=== PATIENT | male | born 1960 | race Two or more races ===

== ENCOUNTER 2025-03-26 14:57 | Inpatient (IN) | payer OTHER ==
[~2025-03-26] VITALS: Ht 165.1 cm; Wt 72.4 kg
--- NOTE | 2025-03-26 15:12 | ED.PDOC ---
History of Present Illness HPI Comments 64 year old male MIRIAM presents to the ED with chief complaint of generalized weakness. EMS reports that the patient was recently seen in [place] a week ago with chest pain and anemia, having a follow up today with his doctor. EMS relays that the patient's Hgb is now 10.2, not requiring transfusion, however, PCP had called 911 due to patient's increased generalized weakness, dizziness, and systolic blood pressure in the 80s. EMS states that the patient was given NS IV on route and after 300mL were given, patient stated he had improvement in his symptoms and feels much better. Patient now denies any generalized weakness, dizziness, chest pain, SOB, N/V/D, or abdominal pain. Time Seen by MD: 15:08 Reviewed Notes: Nurses Notes, Bull Gang Supervisor Notes, Medications, Allergies Information Source: Patient, Relative, Emergency Med Personnel Mode of Arrival: EMS Severity: Moderate Timing: Hours Duration: Since onset Prehospital treatment: None Past Medical History PAST MEDICAL HISTORY: DM, HTN Surgical History: Denies all surgeries Family History Family History: Reviewed,noncontributory to illness Social History Smoker: Non-Smoker Alcohol: Denies ETOH Use Drugs: Denies Drug Use Lives In: Home Constitutional: reports: weakness; denies: chills, diaphoresis, fatigue, fever, malaise, sweats, others EENTM: denies: blurred vision, double vision, ear bleeding, ear discharge, ear drainage, ear pain, ear ringing, eye pain, eye redness, hearing loss, mouth pain, mouth swelling, nasal discharge, nose bleeding, nose congestion, nose pain, photophobia, tearing, throat pain, throat swelling, voice changes, others Respiratory: denies: cough, hemoptysis, orthopnea, SOB at rest, shortness of breath, SOB with excertion, stridor, wheezing, others Cardiovascular: denies: chest pain, dizzy spells, diaphoresis, Dyspnea on exertion, edema, irregular heart beat, left arm pain, lightheadedness, palpitations, PND, syncope, others Gastrointestinal: denies: abdomen distended, abdominal pain, blood streaked bowels, constipated, diarrhea, dysphagia, difficulty swallowing, hematemesis, melena, nausea, poor appetite, poor fluid intake, rectal bleeding, rectal pain, vomiting, others Genitourinary: denies: burning, dysuria, flank pain, frequency, hematuria, incontinence, penile discharge, penile sore, pain, testicle pain, testicle swelling, urgency, others Neurological: denies: dizziness, fainting, headache, left sided numbness, left sided weakness, numbness, paresthesia, pre-existing deficit, right sided numbness, right sided weakness, seizure, speech problems, tingling, tremors, wea kness, others Musculoskeletal: denies: back pain, gout, joint pain, joint swelling, muscle pain, muscle stiffness, neck pain, others Integumetry: denies: bruises, change in color, change in hair/nails, dryness, l aceration, lesions, lumps, rash, wounds, others Allergic/Immunocompromised: denies: Difficulty Healing, Frequent Infections, Hives, Itching, others Hematologic/Lymphatic: denies: anemia, blood clots, easy bleeding, easy bruising, swollen glands, others Endocrine: denies: excessive hunger, excessive sweating, excessive thirst, excessive urination, flushing, intolerance to cold, intolerance to heat, unexplained weight gain, unexplained weight loss, others Psychiatric: denies: anxiety, bipolar disorder, depression, hopeless, panic disorder, schizophrenia, sleepless, suicidal, others All Other Systems: Reviewed and Negative Physical Exam General Appearance: Moderate Distress, Normal HEENT: Normal ENT Inspection, Pharynx Normal, TMs Normal Neck: Full Range of Motion, Non-Tender, Normal, Normal Inspection Respiratory: Chest Non-Tender, Lungs Clear, No Accessory Muscle Use, No Respiratory Distress, Normal Breath Sounds Cardiovascular: No Edema, No JVD, No Murmur, No Gallop, Normal Peripheral Pulses, Regular Rate/Rhythm Breast Exam: Deferred Gastrointestinal: No Organomegaly, Non Tender, No Pulsatile Mass, Normal Bowel Sounds, Soft Genitalia: Deferred Pelvic: Deferred Rectal: Deferred Extremities: No calf tenderness, Normal capillary refill, Normal inspection, Normal range of motion, Non-tender, No pedal edema Musculoskeletal : Apperance: Normal Neurologic: Alert, central office operator supervisor II-XII nml as Tested, No Motor Deficits, Normal Affect, Normal Mood, No Sensory Deficits Cerebellar Function: Normal Reflexes: Normal Skin: Dry, Normal Color, Warm Peripheral Pulses: 3+ Radial (R), 3+ Radial (L) Lymphatic: No Adenopathy Was a procedure done? Was a procedure done?: No Differential Dx Considerations may include: Anemia Electrolyte imbalance X-Ray, Labs, Meds, VS Lab Test 03/26/25 15:42 Range/Units White Blood Count 5.3 4.4-10.8 10^3/uL Red Blood Count 3.23 L 4.5-5.90 10^6/uL Hemoglobin 10.6 L 13.5-17.5 g/dL Hematocrit 31.6 L 41.0-53.0 % Mean Corpuscular Volume 97.9 80.0-100.0 fL Mean Corpuscular Hemoglobin 32.7 H 28.0-32.0 pg Mean Corpuscular Hemoglobin Concent 33.4 32.0-36.0 g/dL Red Cell Distribution Width 14.4 H 11.8-14.3 % Platelet Count 321 140-450 10^3/uL Mean Platelet Volume 7.0 6.9-10.8 fL Neutrophils (%) (Auto) 56.4 37.0-80.0 % Lymphocytes (%) (Auto) 31.6 10.0-50.0 % Monocytes (%) (Auto) 8.7 0.0-12.0 % Eosinophils (%) (Auto) 1.6 0.0-7.0 % Basophils (%) (Auto) 1.7 0.0-2.0 % Neutrophils # (Auto) 3.0 1.6-8.6 10 ^3/uL Lymphocytes # (Auto) 1.7 0.4-5.4 10 ^3/uL Monocytes # (Auto) 0.5 0-1.3 10 ^3/uL Eosinophils # (Auto) 0.1 0-0.8 10 ^3/uL Basophils # (Auto) 0.1 0-0.2 10 ^3/uL Nucleated Red Blood Cells 0.1 % Sodium Level 137 136-145 mmol/L Potassium Level 4.9 3.5-5.1 mmol/L Chloride Level 108 H 98-107 mmol/L Carbon Dioxide Level 20 20-31 mmol/L Anion Gap 9 5-15 Blood Urea Nitrogen 40 H 9-23 mg/dL Creatinine 2.00 H 0.700-1.30 mg/dL Glomerular Filtration Rate Calc 36 >90 mL/min BUN/Creatinine Ratio 20.0 10.0-20.0 Serum Glucose 269 H 74-106 mg/dL Calcium Level 9.5 8.7-10.4 mg/dL Troponin I High Sensitivity 7 </=54 ng/L Patient alert. Vitals stable. Given fluids prior to coming to the ER. Answering questions. Blood sugar elevated. Kidney function elevated. Possible ATN. WBC within normal limits pain Establish intravenous access. Was given fluids pain Cardiac marker within normal limits. Explained to the patient that he will be admitted for further workup. Continue monitoring. EKG reviewed does not show any acute changes. Time of 1ST Reevaluation: 16:08 Reevaluation 1ST: Improved Time of 2ND Reevaluation: 16:52 Reevaluation 2ND: Improved Patient Education/Counseling: Diagnosis, Treatment Family Education/Counseling: Diagnosis, Treatment Additional Information The following tests were ordered, and results were reviewed by me: Additional Information was gathered from interviewing the following independent historians: EMS I reviewed and agreed with the following test results read by other providers: I discussed treatment and results with medical personnel and: patient and family Comprehensive systems review obtained and negative except for what is stated in the HPI. Departure 1 Departure Time of Disposition: 16:54 Impression: Primary Impression: Uncontrolled diabetes mellitus Qualified Codes: E13.65 - Other specified diabetes mellitus with hyperglycemia Additional Impressions: Dehydration Acute tubular necrosis Near syncope Disposition: 09 ADMITTED INPATIENT Admit to: Med Surg Condition: Guarded Comments Spoke to and examined patient at 1508, discussing treatment plan at this time. Critical Care Note Critical Care Time?: No Stability Stability form required: No Heart Score Heart Score: Heart Score Response (Comments) Value History Slightly Suspicious 0 EKG Normal 0 Age >65 2 Risk Factors >3 or Hx ASHD 2 Troponin Normal limit 0 Total 4 I personally scribed for BHAVIN NOWAK MD ([email or web address]) on 03/26/25 at 15:12. Electronically submitted by Giacomo Lawrence ([email or web address]). BHAVIN NOWAK MD March 26, 2025 15:12
[2025-03-26 15:56] LABS: Basophils # (auto) 0.1 10 ^3/uL (0-0.2); Basophils % (auto) 1.7 % (0.0-2.0); Eosinophils # (auto) 0.1 10 ^3/uL (0-0.8); Eosinophils % (auto) 1.6 % (0.0-7.0); Hematocrit 31.6 % (41.0-53.0); Hemoglobin 10.6 g/dL (13.5-17.5); Lymphocytes # (auto) 1.7 10 ^3/uL (0.4-5.4); Lymphocytes % (auto) 31.6 % (10.0-50.0); Mean Corpuscular Hemoglobin 32.7 pg (28.0-32.0); Mean Corpuscular Hgb Conc. 33.4 g/dL (32.0-36.0); Mean Corpuscular Volume 97.9 fL (80.0-100.0); Monocytes # (auto) 0.5 10 ^3/uL (0-1.3); Monocytes % (auto) 8.7 % (0.0-12.0); Neutrophils % (auto) 56.4 % (37.0-80.0); Nucleated Red Blood Cells % 0.1 %; Platelet Count (auto) 321 10^3/uL (140-450); Red Blood Cells 3.23 10^6/uL (4.5-5.90); Red Cell Distribution Width 14.4 % (11.8-14.3); White Blood Cell 5.3 10^3/uL (4.4-10.8)
[2025-03-26 16:03] LABS: Potassium 4.9 mmol/L (3.5-5.1); Sodium 137 mmol/L (136-145)
[2025-03-26 16:04] LABS: Anion Gap 9 (5-15); Calcium 9.5 mg/dL (8.7-10.4)
[2025-03-26 16:06] LABS: Carbon Dioxide 20 mmol/L (20-31); Chloride 108 mmol/L (98-107)
[2025-03-26 16:35] LABS: Blood Urea Nitrogen 40 mg/dL (9-23); Glucose 269 mg/dL (74-106)
--- NOTE | 2025-03-26 17:44 | DVH ---
EXAM: CT HEAD WITHOUT CONTRAST INDICATION: syncope TECHNIQUE: CT of the head without intravenous contrast. Radiation Dose Information: CT Dose: CTDI volume is 58.53 mGy. Dose-length product is 1153.44 mGy*cm The dose indicators for CT are the volume Computed Tomography (CT) Dose Index (CTDIvol) and the Dose Length Product (DLP), and are measured in units of mGy and mGy-cm, respectively. These indicators are not patient dose, but values generated from the CT scanner acquisition factors. The report includes radiation exposure data for exposures received during this examination. COMPARISON: None FINDINGS: There is no evidence of acute intracranial hemorrhage, extra-axial collection, mass effect, midline s hift, herniation or hydrocephalus. Decreased area attenuation right frontal lobe suggesting old infar ct The ventricles, sulci and cisterns are age appropriate. The dominguez-white differentiation is intact. Patchy periventricular and subcortical white matter hypoattenuation is nonspecific but may be related to small vessel ischemic disease. Bilateral focal areas of decreased attenuation in the basal ganglion consistent with lacunar infarcts . There are no prior studies for comparison. Opacified left maxillary sinus sinuses and mastoid air cells are clear. The surrounding soft tissues and osseous structures are unremarkable. IMPRESSION: 1. Decreased area of the attenuation right frontal lobe most likely old infarct. 2. Bilateral focal areas of decreased attenuation of the basal ganglia bilaterally consistent with ol d lacunar infarcts. 3. No acute intracranial hemorrhage
[2025-03-26] MEDS: SODIUM CHLORIDE 0.9% 1,000 ML IV ONE ×3 (19:28→19:33)
[2025-03-26] MEDS ORDERED: ACETAMINOPHEN 650 mg PER 20.3 mL UD PO ONE (19:30)
[2025-03-26] MEDS: ACETAMINOPHEN 325 MG TAB PO ONE (19:32)
[2025-03-26 20:05] VITALS: PULSE 73; RESP 16; O2SAT 99
[2025-03-26] MEDS ORDERED: DEXTROSE (50%) 50ML SYRG IV PRN ×2 (22:30→23:00)
--- NOTE | 2025-03-26 22:59 | DVHHP2 ---
History of Present Illness History of Present Illness Patient is 64 years old male with past medical history of CAD, PTCA x3, 3 years before, hypertension, diabetes mellitus, CVA with left-sided residual weakness, stroke in October 2024, was post stent in right internal carotid artery at [facility] in [place] came with the complaint of dizziness and tiredness. Per patient he has been feeling tired and weak for 1 week and feeling dizzy when he tries to walk around with a walker which is chronic after he had stroke in October 2024. Today he went to see his primary care physician where he was weak, dizzy and his blood pressure was low around 80s. PCP office called 911 and patient was sent to the ER. EN route patient had 300 mL of normal saline and was feeling better. Patient reported 1 week before he went to [facility] with chest pain and anemia. Patient had left heart catheterization, he was cleared for any acute blockage, patient was treated with nitroglycerin patch. Today patient denied any chest pain, shortness of breath, acute abdominal pain or dysuria change in vision or joint swelling. She lab workup revealed hemoglobin 10.6, serum creatinine 2.0, GFR 36, blood sugar 269. Negative for troponin I. CT head -right frontal lobe old infarct. Bilateral focal areas of decreased attenuation of the basal ganglia bilaterally consistent with old lacunar infarcts. Carotid Doppler revealed-Right internal carotid artery stent noted. Atherosclerotic plaquing in the bilateral carotid arteries with less than 50% stenosis based on velocity criteria. Antegrade flow in the vertebral arteries. EKG with a sinus rhythm, no acute ST or T-wave changes. PCP Dr. Marguerite Hu Cardiology-Dr. Anton Walls Past Medical History CAD, PTCA x3, 3 years before, hypertension, diabetes mellitus, CVA with left- sided residual weakness, stroke in October 2024 Past Surgical History Appendectomy, PTCA x3 3 years before Family History Both mom and dad had diabetes mellitus Past Social History Lives with , denies smoking/alcoholism/drug abuse Home meds-insulin Lantus, clopidogrel, atorvastatin-patient could not give the details of the of the medication dose or name of the other medication Review of Systems Review of Systems Allergy- NKDA Patient was seen today at the bedside. Cardiovascular- deny acute chest pain or shortness of breath or cough or palpitation Respiratory denies cough or short of breath or wheezing Gastrointestinal- denies any rectal bleeding, nausea or vomiting Musculoskeletal-denies acute joint swelling or tenderness or redness Neurological- denies acute dysarthria, dysphagia, change in vision Psychiatry- denies depression or SI or HI Skin- denies acute rash or purpura Allergies: Coded Allergies: NO KNOWN ALLERGIES (Unverified , 03/26/25) Medications Current Medications Medications Dose Ordered Sig/Trina Route Start Time Stop Time Status Last Admin Dose Admin Diagnostic Test (Pha) 1 strip ACHS 03/27/25 07:00 Insulin Human Regular ACHS SC 03/27/25 07:00 Dextrose 50 ml UD PRN IV 03/26/25 22:30 Pantoprazole Sodium 40 mg DAILY IV 03/27/25 10:00 Enoxaparin Sodium 40 mg Q24H SC 03/27/25 21:00 Sodium Chloride 1,000 ml @ 125 mls/hr Q8H IV 03/26/25 22:30 Diagnostic Test (Pha) 1 strip ACHS 03/27/25 07:00 UNV Insulin Human Regular ACHS SC 03/27/25 07:00 UNV Dextrose 50 ml UD PRN IV 03/26/25 23:00 UNV Exam Vital Signs Vital Signs Date Time Temp Pulse Resp B/P (MAP) Pulse Ox O2 Delivery O2 Flow Rate FiO2 03/26/25 22:37 97.5 74 16 139/59 (85) 100 97.5 03/26/25 20:05 Room Air* 0 21 Exam General examination- awake, alert, conversant HEENT- PEERLA, no acute nasal discharge Cardiovascular- S1-S2 audible, rate and rhythm regular, no murmur Respiratory- CTAB, no wheeze or rhonchi Gastrointestinal-nontender, bowel sound+. Nondistended Musculoskeletal-no acute joint swelling or tenderness or redness Lower extremity- no leg edema Neurological- cranial nerves intact, no acute dysarthria or dysphagia Psychiatry- denies depression or SI or HI Skin- no acute rash or purpura Labs/Xrays Labs Test 03/26/25 15:42 Range/Units White Blood Count 5.3 4.4-10.8 10^3/uL Red Blood Count 3.23 L 4.5-5.90 10^6/uL Hemoglobin 10.6 L 13.5-17.5 g/dL Hematocrit 31.6 L 41.0-53.0 % Mean Corpuscular Volume 97.9 80.0-100.0 fL Mean Corpuscular Hemoglobin 32.7 H 28.0-32.0 pg Mean Corpuscular Hemoglobin Concent 33.4 32.0-36.0 g/dL Red Cell Distribution Width 14.4 H 11.8-14.3 % Platelet Count 321 140-450 10^3/uL Mean Platelet Volume 7.0 6.9-10.8 fL Neutrophils (%) (Auto) 56.4 37.0-80.0 % Lymphocytes (%) (Auto) 31.6 10.0-50.0 % Monocytes (%) (Auto) 8.7 0.0-12.0 % Eosinophils (%) (Auto) 1.6 0.0-7.0 % Basophils (%) (Auto) 1.7 0.0-2.0 % Neutrophils # (Auto) 3.0 1.6-8.6 10 ^3/uL Lymphocytes # (Auto) 1.7 0.4-5.4 10 ^3/uL Monocytes # (Auto) 0.5 0-1.3 10 ^3/uL Eosinophils # (Auto) 0.1 0-0.8 10 ^3/uL Basophils # (Auto) 0.1 0-0.2 10 ^3/uL Nucleated Red Blood Cells 0.1 % Sodium Level 137 136-145 mmol/L Potassium Level 4.9 3.5-5.1 mmol/L Chloride Level 108 H 98-107 mmol/L Carbon Dioxide Level 20 20-31 mmol/L Anion Gap 9 5-15 Blood Urea Nitrogen 40 H 9-23 mg/dL Creatinine 2.00 H 0.700-1.30 mg/dL Glomerular Filtration Rate Calc 36 >90 mL/min BUN/Creatinine Ratio 20.0 10.0-20.0 Serum Glucose 269 H 74-106 mg/dL Calcium Level 9.5 8.7-10.4 mg/dL Troponin I High Sensitivity 7 </=54 ng/L Assessment/Plan Assessment/Plan Assessment and plan Weakness and dizziness-rule out acute stroke Hypotension likely from dehydration or orthostatic hypotension, rule out cardiac arrhythmia-EKG sinus rhythm, no acute arrhythmia noted Dizziness, rule out stroke/orthostatic hypotension/cardiac arrhythmia Anemia likely anemia of chronic disease NELSY on CKD likely due to VMN Uncontrolled diabetes mellitus Hypertension CAD, PTCA x3 CVA with left-sided residual weakness Right internal carotid artery stent-at [facility] in [place] in October 2024 as per patient bilateral carotid arteries with less than 50% stenosis CT head- Decreased area of the attenuation right frontal lobe most likely old infarct. Bilateral focal areas of decreased attenuation of the basal ganglia bilaterally consistent with old lacunar infarcts. Carotid Doppler revealed-Right internal carotid artery stent noted. Atherosclerotic plaquing in the bilateral carotid arteries with less than 50% stenosis based on velocity criteria. Antegrade flow in the vertebral arteries EKG sinus rhythm, no acute arrhythmia noted Plan Aspirin 81 mg p.o. daily atorvastatin Ordered insulin sliding scale Insulin Lantus Ordered IV normal saline No antihypertensive medication was given at this time as patient came with a hypotension Pantoprazole as prescribed Lovenox for DVT prophylaxis Ordered iron panel and ferritin level for further evaluation of anemia Ordered carotid Doppler Ordered echo 2D Ordered EKG Ordered vitamin B12 and folic acid level, HGB A1c, TSH Ordered UA, urinary sodium, urinary creatinine, urine protein creatinine ratio Ordered stool occult blood test PCP Dr. Marguerite Hu Cardiology-Dr. Anton Walls Goals of care, Code status ; discussed with >15 minutes PUD prophylaxis: Pantoprazole DVT prophylaxis: Lovenox Plan discussed with Dr. Flores , nursing staff, Total time spent on patient evaluation, chart review, assessment and plan, dis cussion discussion >35 minutes Plan discussed with: Patient, Spouse, Other (RN) My Orders Orders - VIDA EMANUEL RESIDENT Procedure Category Date Status Time Admit ADMIT 03/26/25 Transmitted 22:16 Stat Ekg For Chest ORION 03/26/25 In Process Pain 22:16 [employer] For ORION 03/26/25 In Process 24 Hours 22:16 Glucose Blood PHA 03/27/25 In Process (Accu-Chek Comfort 07:00 Insulin R (Human) PHA 03/27/25 In Process (Insulin R) 07:00 Dextrose 50% Syringe PHA 03/26/25 In Process 22:30 Pantoprazole PHA 03/27/25 In Process (Protonix) 10:00 Enoxaparin Sodium PHA 03/27/25 In Process (Lovenox) 21:00 Sodium Chloride 0.9% PHA 03/26/25 In Process 22:30 Orthostatic Vital ORDERS 5/14/25 Transmitted Signs 22:26 Echo 2d Mode Cardiac US 03/26/25 Logged DOP 22:44 Electrocardigram EKG 03/26/25 Logged 22:44 Chest Xray 1 View XY 03/26/25 Logged 22:44 Thyroid Stimulating LAB 03/26/25 Logged Hormone 22:44 Vitamin B12 LAB 03/26/25 Logged 22:44 Folate (Folic Acid) LAB 03/26/25 Logged 22:44 Carotid Duplx W Color US 03/26/25 Verified DOP 22:44 Stool Occult Blood LAB 03/26/25 Logged 22:46 Iron Panel LAB 03/26/25 Logged 22:46 Reticulocyte Count LAB 03/26/25 Logged 22:46 Urine Sodium LAB 03/26/25 Logged 22:48 Urine LAB 03/26/25 Logged Protein/Creatinine Urine Creatinine LAB 03/26/25 Logged 22:48 *Dr. Calderón [facility] CONS 03/26/25 Transmitted -[place] 22:48 Phosphorus LAB 03/26/25 Logged 22:48 Parathyroid Hormone LAB 03/26/25 Logged Intact 22:48 Consistent DIET 03/27/25 Transmitted Carb(Ccho)Diabetes Breakfast Urinalysis LAB 03/26/25 Logged 22:48 Glucose Blood PHA 03/27/25 Logged (Accu-Chek Comfort 07:00 Insulin R (Human) PHA 03/27/25 Logged (Insulin R) 07:00 Dextrose 50% Syringe PHA 03/26/25 Logged 23:00 Insulin Lantus PHA 03/26/25 Verified (Glargine) (Lantus) 23:00 Insulin Lantus PHA 03/27/25 Verified (Glargine) (Lantus) 07:00 Aspirin Tablet PHA 03/27/25 Verified 10:00 Aspirin Tablet PHA 03/26/25 Verified 23:00 Atorvastatin (Lipitor) PHA 03/27/25 Verified 22:00 Atorvastatin (Lipitor) PHA 03/26/25 Verified 23:00 Date of Service: March 26, 2025 Billing Provider: KATRINA FLORES MD Common Visit Codes: 92322-[id number] INP/OBS CARE (HIGH) Secondary Visit Codes: 43816-[id number] CARE PLAN 30 MINUTES VIDA EMANUEL RESIDENT March 26, 2025 22:59
[2025-03-26 23:42] LABS: % Iron Saturation 21.9 % (20-55)
[2025-03-26 23:45] LABS: Folate (Folic Acid) 10.89 ng/mL (>5.38)
[2025-03-26] MEDS: PANTOPRAZOLE 40 MG/10 ML VIAL INJ IV ONE (23:51)
[2025-03-26] MEDS: ATORVASTATIN 20 MG TAB PO ONE (23:51)
[2025-03-26] MEDS: ASPirin 81 mg TAB PO ONE (23:52)
[2025-03-26] MEDS: ENOXAPARIN SOD 40 MG/0.4 ML SYRINGE SC ONE (23:52)
[2025-03-26 23:54] VITALS: BP 133/73; PULSE 73; RESP 17; TEMP 98; O2SAT 99
[2025-03-27] VITALS (12 sets, daily range): BP systolic 81–153; BP diastolic 47–73; PULSE 70–87; RESP 11–18; TEMP 97.4–98.6; O2SAT 96–100
[2025-03-27] MEDS: SODIUM CHLORIDE 0.9% 1,000 ML IV SCH (00:02)
[2025-03-27] MEDS: INSULIN LANTUS (GLARGINE) 1 /0.01ml (100units/ml) SC ONE (00:02)
--- NOTE | 2025-03-27 00:06 | DVH ---
CHEST RADIOGRAPH Indication: PNA Technique: Single frontal view of the chest was obtained Comparison: None FINDINGS: Lines and Tubes: None Lungs: Clear Pleura: No effusion. No pneumothorax. Cardiomediastinal contours: Unremarkable Bones: Unremarkable IMPRESSION: Clear lungs.
--- NOTE | 2025-03-27 00:41 | DVH ---
Carotid Doppler Examination CLINICAL HISTORY: dizziness TECHNIQUE: Real-time high resolution grayscale imaging and color Doppler flow imaging with pulsed du plex sonography of the carotid and vertebral arteries is performed. Velocity criteria are extrapolated from angiographic diameter data as defined by the Society of Radio logists in Ultrasound Consensus Conference (Radiology 2003; 229: 340-346). Comparison: None FINDINGS: Bilateral carotid plaquing is noted, most notable in the left bulb. Right internal carotid artery madina nt is noted. Antegrade flow noted in the bilateral vertebral arteries. Peak systolic velocities (cm/sec): Right ICA proximal: 79 Right ICA mid: 96.8 Right ICA distal: 83.8 Right systolic ICA/CCA ratio: 1.3 Left ICA proximal: 71.4 Left ICA mid: 88.7 Left ICA distal: 122.6 Left systolic ICA/CCA ratio: 1.2 IMPRESSION: Right internal carotid artery stent noted. Atherosclerotic plaquing in the bilateral carotid arteries with less than 50% stenosis based on veloc ity criteria. Antegrade flow in the vertebral arteries.
[2025-03-27] MEDS ORDERED: INSLANTI SC (01:00)
[2025-03-27] MEDS ORDERED: ASPI-665 PO (01:04)
[2025-03-27] MEDS ORDERED: CLOP75TA70 PO (01:04)
[2025-03-27 05:50] LABS: Basophils # (auto) 0.1 10 ^3/uL (0-0.2); Basophils % (auto) 1.4 % (0.0-2.0); Eosinophils # (auto) 0.2 10 ^3/uL (0-0.8); Eosinophils % (auto) 3.7 % (0.0-7.0); Hematocrit 29.7 % (41.0-53.0); Hemoglobin 9.8 g/dL (13.5-17.5); Lymphocytes # (auto) 1.9 10 ^3/uL (0.4-5.4); Mean Corpuscular Hemoglobin 32.3 pg (28.0-32.0); Mean Corpuscular Volume 98.1 fL (80.0-100.0); Monocytes # (auto) 0.5 10 ^3/uL (0-1.3); Monocytes % (auto) 10.9 % (0.0-12.0); Neutrophils # (auto) 2.2 10 ^3/uL (1.6-8.6); Platelet Count (auto) 268 10^3/uL (140-450); Red Blood Cells 3.03 10^6/uL (4.5-5.90); Red Cell Distribution Width 14.1 % (11.8-14.3)
[2025-03-27] MEDS: InsuLIN REG 1unit/0.01ml Soln (100units/ml) SC SCH (06:00)
[2025-03-27] MEDS: ACCU-CHEK COMFORT CURVE STRIP VI SCH ×2 (06:05)
[2025-03-27] MEDS: INSULIN LANTUS (GLARGINE) 1 /0.01ml (100units/ml) SC SCH (06:16)
[2025-03-27] MEDS ORDERED: InsuLIN REG 1unit/0.01ml Soln (100units/ml) SC SCH (07:00)
[2025-03-27 09:02] LABS: Urine Bacteria None Seen /hpf (None Seen)
[2025-03-27 09:12] LABS: Urine Blood Negative /uL (Negative); Urine Clarity Clear (Clear); Urine Color Light-Yellow (Yellow); Urine Protein, UAD Negative (Negative); Urine Specific Gravity 1.014 (1.001-1.035); Urine Squamous Epithelial Cell FEW /hpf (<5); Urine Urobilinogen Normal (Negative); Urine WBC < 1 /HPF (0-3); Urine pH 5.5 (5.0-9.0)
[2025-03-27] MEDS: ASPirin 81 mg TAB PO SCH (09:17)
[2025-03-27] MEDS: PANTOPRAZOLE 40 MG/10 ML VIAL INJ IV SCH (09:17)
[2025-03-27 09:20] LABS: Protein, Urine 12.8 mg/dL (1-14)
[2025-03-27 09:23] LABS: Creatinine, Urine 43.19 mg/dL (30.0-125.0); Urine Protein/Creatinine Ratio 0.3
--- NOTE | 2025-03-27 10:04 | DVH ---
US KIDNEY HISTORY: mckenzie vs ckd COMPARISON: None TECHNIQUE: Transverse and longitudinal grayscale and color doppler images were obtained of the kidney s and bladder. FINDINGS: Right kidney: Size: 10.0 cm Cortical thickness: Normal Echogenicity: Normal Stones: 0.5 cm non obstructive kidney stone. Masses: None Hydronephrosis: None Ureters: Not well visualized. Other: None Left kidney: Size: 10.3 cm Cortical thickness: Normal Echogenicity: Normal Stones: 0.4cm left kidney stone. Masses: None Hydronephrosis: Yes Ureters: Not well visualized. Other: None Bladder: 0.6 cm nodule along the bladder wall. Other: None. IMPRESSION: Mild left hydronephrosis. Small bilateral kidney stones seen. 0.6 cm nodule along the bladder wall.
[2025-03-27 10:22] LABS: Alanine Aminotransferase 54 U/L (7-40); Alkaline Phosphatase 135 U/L (46-116); Anion Gap 9 (5-15); Aspartate Aminotransferase 33 U/L (13-40); BUN/Creatinine Ratio 22.1 (10.0-20.0); Bilirubin, Total 0.7 mg/dL (0.2-1.0); Blood Urea Nitrogen 38 mg/dL (9-23); Calcium 9.2 mg/dL (8.7-10.4); Carbon Dioxide 20 mmol/L (20-31); Chloride 114 mmol/L (98-107); Cholesterol 102 mg/dL (< 200); Glucose 178 mg/dL (74-106); HDL Cholesterol 34 mg/dL (40-59); LDL Cholesterol 50 mg/dL (< 100); Potassium 4.3 mmol/L (3.5-5.1); Sodium 143 mmol/L (136-145); Total Protein 6.7 g/dL (5.7-8.2); Triglycerides 84 mg/dL (< 150)
[2025-03-27 10:30] LABS: Magnesium 2.3 mg/dL (1.6-2.6)
[2025-03-27 10:32] LABS: Phosphorus 4.1 mg/dL (2.4-5.1)
[2025-03-27] MEDS ORDERED: SODIUM CHLORIDE 0.9% 1,000 ML IV SCH (12:00)
[2025-03-27] MEDS: amLODIPine BESYLATE 5 MG TAB PO ONE (13:46)
--- NOTE | 2025-03-27 16:15 | DVHPN2 ---
Subjective 64-year-old male with a history of type 2 diabetes insulin-dependent, coronary artery disease status post stents 2-1/2 years ago, hypertension, CVA with left hemiparesis 6 months ago, carotid stenosis with right carotid stent done also 6 months ago came with a chief complaint of low blood pressure and weakness apparently he was at his primary care doctor's office yesterday and his blood pressure was low and he felt weak and therefore he was sent here Admission here his blood pressure was running at about 120/66, he was found to have elevated creatinine at 2.0, he was given IV fluids overnight creatinine is down to 1.7 is blood pressure is better and he is feeling better Changes from previous H/P or p: Changes Objective Vitals Vital Signs Date Time Temp Pulse Resp B/P (MAP) Pulse Ox O2 Delivery O2 Flow Rate FiO2 03/27/25 15:27 97.5 78 11 153/64 (93) 98 97.5 03/27/25 07:00 Room Air* 0 21 Intake/Output Intake and Output 03/27/25 07:00 Intake Total 2000 ml Balance 2000 ml Intake IV Total 2000 ml General Appearance: Alert, Oriented X3, Cooperative, No acute distress Lungs: Clear to auscultation, Normal air movement Cardiovascular: Regular rate, Normal S1, Normal S2 Abdomen: Normal bowel sounds, Soft, No tenderness Extremities: No edema Medications Current Medications Medications Dose Ordered Sig/Trina Route Start Time Stop Time Status Last Admin Dose Admin Diagnostic Test (Pha) 1 strip ACHS 03/27/25 07:00 03/27/25 11:35 1 STRIP Insulin Human Regular ACHS SC 03/27/25 07:00 03/27/25 06:00 2 UNITS Dextrose 50 ml UD PRN IV 03/26/25 22:30 Pantoprazole Sodium 40 mg DAILY IV 03/27/25 10:00 03/27/25 09:17 40 MG Enoxaparin Sodium 40 mg Q24H SC 03/27/25 21:00 Diagnostic Test (Pha) 1 strip ACHS 03/27/25 07:00 03/27/25 11:35 1 STRIP Insulin Human Regular ACHS SC 03/27/25 07:00 UNV Dextrose 50 ml UD PRN IV 03/26/25 23:00 Insulin Glargine 15 units QAM SC 03/27/25 07:00 Aspirin 81 mg DAILY PO 03/27/25 10:00 03/27/25 09:17 81 MG Atorvastatin Calcium 80 mg HS PO 03/27/25 22:00 Amlodipine Besylate 10 mg DAILY PO 03/28/25 10:00 Laboratory Results Laboratory Tests 03/27/25 05:05 Chemistry Test 03/26/25 23:08 03/27/25 05:05 Phosphorus Level 3.8 mg/dL (2.4-5.1) 4.1 mg/dL (2.4-5.1) Albumin 4.0 g/dL (3.2-4.8) Calcium Level 9.2 mg/dL (8.7-10.4) Magnesium Level 2.3 mg/dL (1.6-2.6) Total Protein 6.7 g/dL (5.7-8.2) Lipid panel Test 03/27/25 05:05 Cholesterol Level 102 mg/dL (< 200) HDL Cholesterol 34 mg/dL (40-59) L Triglycerides Level 84 mg/dL (< 150) LFT Test 03/27/25 05:05 Alanine Aminotransferase (ALT) 54 U/L (7-40) H Alkaline Phosphatase 135 U/L (46-116) H Aspartate Amino Transferase (AST) 33 U/L (13-40) Total Bilirubin 0.7 mg/dL (0.2-1.0) HgA1c, TSH Test 03/26/25 23:08 Thyroid Stimulating Hormone (TSH) 2.96 uIU/mL (0.55-4.78) Urinalysis Test 03/27/25 09:00 Urine Color Light-yellow (Yellow) Urine Clarity Clear (Clear) Urine pH 5.5 (5.0-9.0) Urine Specific [place] 1.014 (1.001-1.035) Urine Protein Negative (Negative) Urine Ketones Negative (Negative) Urine Blood Negative /uL (Negative) Urine Nitrite Negative (Negative) Urine Bilirubin Negative (Negative) Urine Urobilinogen Normal mg/dL (Negative) Urine Leukocyte Esterase Negative /uL (Negative) Urine RBC None seen /hpf (0 - 3) Urine Microscopic WBC < 1 /HPF (0-3) Urine Squamous Epithelial Cells Few /hpf (<5) Urine Bacteria None seen /hpf (None Seen) Urine Creatinine 43.19 mg/dL (30.0-125.0) Urine Protein/Creatinine Ratio 0.30 Urine Sodium 149 mmol/L (40-220) Urine Glucose 4+ mg/dL (Normal) H Urine Total Protein 12.8 mg/dL (1-14) Assessment/Plan Assessment/Plan Hypotension due to dehydration and acute kidney injury due to vasomotor nephropathy Acute kidney injury due to vasomotor nephropathy Possible underlying CKD Uncontrolled type 2 diabetes History of hypertension History of CAD with PTCA x3 2-1/2 years ago taking aspirin and Plavix History of CVA with left-sided residual weakness 6 months ago Carotid stenosis with right carotid stent done also 6 months ago Anemia most likely of chronic disease Generalized weakness Plan Hypertension: Amlodipine was started Continue aspirin and Plavix Lipitor Lantus 20 units daily Nephrology consult Monitor the kidney function Echocardiogram pending Full code Physical therapy evaluation Advance directives discussed for 20 minute Plan discussed with: Patient Date of Service: March 27, 2025 Billing Provider: CIARRA FRAGOSO MD Common Visit Codes: [id number] INP/OBS CARE(HIGH) Secondary Visit Codes: [id number] CARE PLAN 30 MINUTES CIARRA FRAGOSO MD March 27, 2025 16:15
[2025-03-27] MEDS: CLOPIDOGREL BISULFATE 75 MG TAB PO ONE (17:51)
--- NOTE | 2025-03-27 18:10 | DVHCONRES ---
Date Seen: March 27, 2025 Resident Creating Document: MADALYN GONSALES RESIDENT History of Present Illness This is a 64-year-old male with PMH diabetes mellitus type 2 for the past 20 years, hypotension, CAD with 3 JESSE 3 years back, history of CVA with residual left-sided weakness 10/2024 status post right ICA stent placement at [place] who was sent to the ER by his PCP as the patient had low blood pressure. Patient went for a routine follow up visit to the PCP where his blood pressure was running low, systolic in 80 mmHg, therefore he was sent to the ER. Patient reports dizziness and fatigue but says that days symptoms have been chronic for the past 5 months when he had a stroke. Patient follows with physical therapist. Patient reports a rash which initially started on bilateral ankles, is itchy, erythematous, papular. Patient was recently admitted in [place] for chest pain 1 week back and he has a left heart catheterization which was unremarkable. Otherwise patient denies fevers/chills/nausea/vomiting/diarrhea/urinary urgency/frequency or any other symptoms Home medications: Clopidogrel, atorvastatin, Lantus Social history: Lives with : Denies smoking/drinking/drug use Patient seen and examined in the ER holding. Vitally stable, CBC remarkable for normocytic anemia. BUN/creatinine 40/2, baseline creatinine 1.1, GFR 68 Family History: Diabetes mellitus G8 MOTHER G8 FATHER Hypercholesterolemia G8 MOTHER Allergies: Coded Allergies: NO KNOWN ALLERGIES (Unverified , 03/26/25) Home Meds Reported Medications Aspirin (Aspirin Regular Strength) 325 Mg Tab, 1 TAB PO DAILY 03/27/25 Clopidogrel Bisulfate (CLOPIDOGREL) 75 Mg Tab, 1 TAB PO DAILY 03/27/25 Insulin Glargine (Lantus) 100 Unit/Ml Inj, 20 UNIT SC DAILY, INJ 03/27/25 Current Medications Current Medications Medications (Trade) Dose Ordered Sig/Trina Route PRN Reason Start Time Stop Time Status Last Admin Diagnostic Test (Pha) (Accu-Chek Comfort Curve T) 1 strip ACHS 03/27/25 07:00 03/27/25 11:35 Insulin Human Regular (InsuLIN R) ACHS SC 03/27/25 07:00 03/27/25 06:00 Dextrose 50 ml UD PRN IV Blood Sugar LESS THAN 60 03/26/25 22:30 Pantoprazole Sodium (Protonix) 40 mg DAILY IV 5/15/25 10:00 03/27/25 09:17 Enoxaparin Sodium (Lovenox) 40 mg Q24H SC 03/27/25 21:00 03/27/25 16:13 DC Sodium Chloride 1,000 ml @ 125 mls/hr Q8H IV 03/26/25 22:30 03/27/25 11:54 DC 03/27/25 00:02 Diagnostic Test (Pha) (Accu-Chek Comfort Curve T) 1 strip ACHS 03/27/25 07:00 03/27/25 11:35 Insulin Human Regular (InsuLIN R) ACHS SC 03/27/25 07:00 UNV Dextrose 50 ml UD PRN IV Blood Sugar LESS THAN 60 03/26/25 23:00 Insulin Glargine (Lantus) 15 units QAM SC 03/27/25 07:00 Aspirin 81 mg DAILY PO 03/27/25 10:00 03/27/25 09:17 Atorvastatin Calcium (Lipitor) 80 mg HS PO 03/27/25 22:00 Sodium Chloride 1,000 ml @ 100 mls/hr Q10H IV 03/27/25 12:00 03/27/25 13:20 DC Amlodipine Besylate (Norvasc Tablet) 10 mg DAILY PO 03/28/25 10:00 Clopidogrel Bisulfate (Plavix) 75 mg DAILY PO 03/28/25 10:00 Vital Signs Vital Signs Date Time Temp Pulse Resp B/P (MAP) Pulse Ox O2 Delivery O2 Flow Rate FiO2 03/27/25 16:15 97.4 76 18 146/72 (96) 100 97.4 03/27/25 07:00 Room Air* 0 21 Physical Exam Patient sitting comfortably in a recliner, no acute distress General: Well-built, afebrile, palor, mucosae are moist Cardiovascular: Regular S1 and S2. No murmurs, gallops or rubs. No JVD elevation. 1+ pitting pedal edema bilaterally Respiratory: Normal B/L air entry on room air. Clear lung sounds on auscultation Abdomen: Soft, nontender, nondistended, normoactive bowel sounds, no rebound tenderness, no organomegaly, no masses Genitourinary: Deferred MSK/skin: Mobilizes 4 limbs. Skin is dry and warm. Bilateral ankle has annular, erythematous, pruritic, circular, rash for the past 1 month Neurological: No motor, no sensitive deficits, normal speech. Pupils are isocor ic and reactive. Psych/Mental Status: A/Ox3 Labs/Diagnostic Data Labs Test 03/27/25 16:22 03/27/25 09:00 03/27/25 05:05 03/26/25 23:08 Range/Units POC Glucose 110 H 70-106 mg/dl Urine Color Light-yellow Yellow Urine Clarity Clear Clear Urine pH 5.5 5.0-9.0 Urine Specific [place] 1.014 1.001-1.035 Urine Protein Negative Negative Urine Ketones Negative Negative Urine Blood Negative Negative /uL Urine Nitrite Negative Negative Urine Bilirubin Negative Negative Urine Urobilinogen Normal Negative mg/dL Urine Leukocyte Esterase Negative Negative /uL Urine RBC None seen 0 - 3 /hpf Urine Microscopic WBC < 1 0-3 /HPF Urine Squamous Epithelial Cells Few <5 /hpf Urine Bacteria None seen None Seen /hpf Urine Creatinine 43.19 30.0-125.0 mg/dL Urine Protein/Creatinine Ratio 0.30 Urine Sodium 149 40-220 mmol/L Urine Glucose 4+ H Normal mg/dL Urine Total Protein 12.8 1-14 mg/dL White Blood Count 5.0 4.4-10.8 10^3/uL Red Blood Count 3.03 L 4.5-5.90 10^6/uL Hemoglobin 9.8 L 13.5-17.5 g/dL Hematocrit 29.7 L 41.0-53.0 % Mean Corpuscular Volume 98.1 80.0-100.0 fL Mean Corpuscular Hemoglobin 32.3 H 28.0-32.0 pg Mean Corpuscular Hemoglobin Concent 33.0 32.0-36.0 g/dL Red Cell Distribution Width 14.1 11.8-14.3 % Platelet Count 268 140-450 10^3/uL Mean Platelet Volume 7.2 6.9-10.8 fL Neutrophils (%) (Auto) 45.0 37.0-80.0 % Lymphocytes (%) (Auto) 39.0 10.0-50.0 % Monocytes (%) (Auto) 10.9 0.0-12.0 % Eosinophils (%) (Auto) 3.7 0.0-7.0 % Basophils (%) (Auto) 1.4 0.0-2.0 % Neutrophils # (Auto) 2.2 1.6-8.6 10 ^3/uL Lymphocytes # (Auto) 1.9 0.4-5.4 10 ^3/uL Monocytes # (Auto) 0.5 0-1.3 10 ^3/uL Eosinophils # (Auto) 0.2 0-0.8 10 ^3/uL Basophils # (Auto) 0.1 0-0.2 10 ^3/uL Nucleated Red Blood Cells 0.0 % Sodium Level 143 # 136-145 mmol/L Potassium Level 4.3 3.5-5.1 mmol/L Chloride Level 114 H 98-107 mmol/L Carbon Dioxide Level 20 20-31 mmol/L Anion Gap 9 5-15 Blood Urea Nitrogen 38 H 9-23 mg/dL Creatinine 1.72 H 0.700-1.30 mg/dL Glomerular Filtration Rate Calc 44 >90 mL/min BUN/Creatinine Ratio 22.1 H 10.0-20.0 Serum Glucose 178 H 74-106 mg/dL Calcium Level 9.2 8.7-10.4 mg/dL Phosphorus Level 4.1 2.4-5.1 mg/dL Magnesium Level 2.3 1.6-2.6 mg/dL Ferritin 243.3 22-322 ng/mL Total Bilirubin 0.7 0.2-1.0 mg/dL Aspartate Amino Transferase (AST) 33 13-40 U/L Alanine Aminotransferase (ALT) 54 H 7-40 U/L Alkaline Phosphatase 135 H 46-116 U/L Total Protein 6.7 5.7-8.2 g/dL Albumin 4.0 3.2-4.8 g/dL Triglycerides Level 84 < 150 mg/dL Cholesterol Level 102 < 200 mg/dL LDL Cholesterol 50 < 100 mg/dL HDL Cholesterol 34 L 40-59 mg/dL Vitamin D 25-Hydroxy 35.1 30.0-100 ng/mL HIV (1&2) Antibody Negative Negative Reticulocyte Count (auto) 1.24 0.5-1.5 % Iron Level 61 L 65-175 ug/dL Total Iron Binding Capacity 279 250-425 ug/dL Percent Iron Saturation 21.9 20-55 % Vitamin B12 Level 1045 H 211-911 pg/mL Folic Acid 10.89 >5.38 ng/mL Thyroid Stimulating Hormone (TSH) 2.96 0.55-4.78 uIU/mL Parathyroid Hormone (Intact) 89.8 H 18.4-80.1 pg/mL Test 03/26/25 15:42 Range/Units Troponin I High Sensitivity 7 </=54 ng/L Assessment Acute kidney injury likely vasomotor mediated rule out ATN and obstruction Hypotension Type 2 diabetes mellitus Anemia likely normocytic Rash, bilateral ankles, pruritic ? Bladder wall nodule History of hypertension History of CAD with 3 JESSE History of CVA 10/2024 with residual left-sided weakness status post right ICA stent placement BUN/creatinine on arrival 40/2 Baseline creatinine 1.1, baseline GFR 68 FENA 4.1% Plan: Patient is improving BUN and creatinine, discontinued IV fluids as BP high Renal ultrasound shows mild left hydronephrosis. Small bilateral kidney stones. 0.6 cm nodule along the bladder wall. Patient has received 3 L IV NS since admission. Continue Strict I&Os Consider outpatient urology evaluation given bladder wall nodule Continue amlodipine 10 mg daily Follow up with HGB A1c levels Follow up with the hepatitis-B/ C and HIV testing Follow up with iron panel and ferritin Plan discussed with patient in which all questions have been answered Case discussed with Dr. hood Addendum Patient seen and examined, plan discussed with resident. Agree with above, we will follow closely Baseline creatinine is 1.1 Status post IV fluids now blood pressure in 180 range stop IV fluids patient denies any dizziness Plan discussed with: Patient MADALYN GONSALES RESIDENT March 27, 2025 18:10 ZUHAIR HOOD MD March 27, 2025 19:45
[2025-03-27] MEDS ORDERED: ENOXAPARIN SOD 40 MG/0.4 ML SYRINGE SC SCH (21:00)
[2025-03-27] MEDS: ATORVASTATIN 20 MG TAB PO SCH (22:13)
[2025-03-28] VITALS (9 sets, daily range): BP systolic 77–130; BP diastolic 45–72; PULSE 73–100; RESP 16–18; TEMP 97.3–98.9; O2SAT 94–99
[2025-03-28 07:38] LABS: Anion Gap 9 (5-15); Carbon Dioxide 22 mmol/L (20-31); Potassium 4.4 mmol/L (3.5-5.1); Sodium 141 mmol/L (136-145)
[2025-03-28 07:39] LABS: Calcium 9.7 mg/dL (8.7-10.4)
[2025-03-28 07:44] LABS: BUN/Creatinine Ratio 17.4 (10.0-20.0)
[2025-03-28 07:45] LABS: % Iron Saturation 21.4 % (20-55)
[2025-03-28 07:51] LABS: Blood Urea Nitrogen 24 mg/dL (9-23); Chloride 110 mmol/L (98-107); Glucose 183 mg/dL (74-106)
[2025-03-28 10:01] LABS: Hepatitis B Surface Antibody Negative (Negative); Hepatitis B Surface Antigen Negative (Negative)
[2025-03-28] MEDS: CLOPIDOGREL BISULFATE 75 MG TAB PO SCH (10:02)
[2025-03-28] MEDS: amLODIPine BESYLATE 5 MG TAB PO SCH (10:02)
[2025-03-28] MEDS: SODIUM CHLORIDE 0.9% 1,000 ML IV ONE (15:09)
--- NOTE | 2025-03-28 15:23 | DVHPN2 ---
Progress Note Date Seen: March 28, 2025 Resident Creating Document: MADALYN GONSALES RESIDENT Medical Necessity Reason Pt with a Central, PICC or Fol: No Subjective Review of Systems This is a 64-year-old male with PMH diabetes mellitus type 2 for the past 20 years, hypotension, CAD with 3 JESSE 3 years back, history of CVA with residual left-sided weakness 10/2024 status post right ICA stent placement at [place] who was sent to the ER by his PCP as the patient had low blood pressure. Patient went for a routine follow up visit to the PCP where his blood pressure was running low, systolic in 80 mmHg, therefore he was sent to the ER. Patient reports dizziness and fatigue but says that days symptoms have been chronic for the past 5 months when he had a stroke. Patient follows with physical therapist. Patient reports a rash which initially started on bilateral ankles, is itchy, erythematous, papular. Patient was recently admitted in [place] for chest pain 1 week back and he has a left heart catheterization which was unremarkable. Otherwise patient denies fevers/chills/nausea/vomiting/diarrhea/urinary urgency/frequency or any other symptoms Home medications: Clopidogrel, atorvastatin, Lantus Social history: Lives with : Denies smoking/drinking/drug use 03/27-Patient seen and examined in the ER holding. Vitally stable, CBC remarkable for normocytic anemia. BUN/creatinine 40/2, baseline creatinine 1.1, GFR 68 03/28-patient seen and examined at the bedside. Blood pressure on the softer side. Urine output 650 cc. Orthostatic vitals are positive, blood pressure dropped from 119/59 till 77/45 on standing. BUN/creatinine trending down. 1 L NS ordered at 75 cc/hour. Objective vital signs Vital Sign Date Time Temp Pulse Resp B/P (MAP) Pulse Ox O2 Delivery O2 Flow Rate FiO2 03/28/25 13:00 97.3 75 16 130/65 (86) 97 97.3 03/28/25 08:00 Room Air* 0 21 Total Intake and Output 03/27/25 03/27/25 03/28/25 15:00 23:00 07:00 Intake Total 230 ml 370 ml Output Total 650 ml Balance 230 ml -280 ml medications Current Medications Medications Dose Ordered Sig/Trina Route Start Time Stop Time Status Last Admin Dose Admin Diagnostic Test (Pha) 1 strip ACHS 03/27/25 07:00 03/28/25 11:30 1 STRIP Insulin Human Regular ACHS SC 03/27/25 07:00 03/28/25 06:49 3 UNITS Dextrose 50 ml UD PRN IV 03/26/25 22:30 Pantoprazole Sodium 40 mg DAILY IV 03/27/25 10:00 03/28/25 10:01 40 MG Diagnostic Test (Pha) 1 strip ACHS 03/27/25 07:00 03/28/25 11:30 1 STRIP Insulin Human Regular ACHS SC 03/27/25 07:00 UNV Dextrose 50 ml UD PRN IV 03/26/25 23:00 Insulin Glargine 15 units QAM SC 03/27/25 07:00 03/28/25 06:50 15 UNITS Aspirin 81 mg DAILY PO 03/27/25 10:00 03/28/25 10:03 81 MG Atorvastatin Calcium 80 mg HS PO 03/27/25 22:00 03/27/25 22:13 80 MG Amlodipine Besylate 10 mg DAILY PO 03/28/25 10:00 03/28/25 10:02 10 MG Clopidogrel Bisulfate 75 mg DAILY PO 03/28/25 10:00 03/28/25 10:02 75 MG Examination Patient comfortably walking with the physical therapist, no acute distress General: Well-built, afebrile, palor, mucosae are moist Cardiovascular: Regular S1 and S2. No murmurs, gallops or rubs. No JVD elevation. 1+ pitting pedal edema bilaterally Respiratory: Normal B/L air entry on room air. Clear lung sounds on auscultation Abdomen: Soft, nontender, nondistended, normoactive bowel sounds, no rebound tenderness, no organomegaly, no masses Genitourinary: Deferred MSK/skin: Mobilizes 4 limbs. Skin is dry and warm. Bilateral ankle has annular, erythematous, pruritic, circular, rash for the past 1 month Neurological: No motor, no sensitive deficits, normal speech. Pupils are isocoric and reactive. Psych/Mental Status: A/Ox3 laboratory and microbiology Laboratory Tests 03/28/25 06:54 03/27/25 05:05 Test 03/28/25 06:54 Range/Units Serum Glucose 183 H 74-106 mg/dL Labs and/or images reviewed: Labs reviewed by me, Image(s) reviewed by me Problem List/Assessment/Plan Problem List/Assessment/Plan Acute kidney injury likely vasomotor mediated rule out ATN and obstruction Hypotension, likely orthostatic hypotension Type 2 diabetes mellitus-A1c 8 Anemia likely normocytic Rash, bilateral ankles, pruritic ? Bladder wall nodule History of hypertension History of CAD with 3 JESSE History of CVA 10/2024 with residual left-sided weakness status post right ICA stent placement BUN/creatinine on arrival 40/2 Baseline creatinine 1.1, baseline GFR 68 FENA 4.1% Plan: Given the BUN/creatinine trending down, patient is improving, we started NS at 75 cc/hour (1 back). Orthostatic vitals are positive Renal ultrasound shows mild left hydronephrosis. Small bilateral kidney stones. 0.6 cm nodule along the bladder wall. Patient has received 3 L IV NS since admission. Continue Strict I&Os Consider outpatient urology evaluation given bladder wall nodule Continue amlodipine 10 mg daily Hepatitis panel negative We will continue to follow the patient Plan discussed with patient in which all questions have been answered Case discussed with Dr. hood Addendum Patient seen and examined, plan discussed with resident. Agree with above, we will follow closely Plan discussed with: Patient MADALYN GONSALES March 28, 2025 15:22 ZUHAIR HOOD MD March 28, 2025 20:47
--- NOTE | 2025-03-28 19:37 | DVHPN2 ---
Subjective Better Less dizzy NELSY is better Changes from previous H/P or p: Changes Objective Vitals Vital Signs Date Time Temp Pulse Resp B/P (MAP) Pulse Ox O2 Delivery O2 Flow Rate FiO2 03/28/25 17:05 98.9 77 18 111/60 (77) 98 98.9 03/28/25 08:00 Room Air* 0 21 Intake/Output Intake and Output 03/28/25 07:00 Intake Total 600 ml Output Total 650 ml Balance -50 ml Intake Oral 600 ml Output Urine Total 650 ml # Bowel Movements 1 General Appearance: Alert, Oriented X3, Cooperative, No acute distress Lungs: Clear to auscultation, Normal air movement Cardiovascular: Regular rate, Normal S1, Normal S2 Abdomen: Normal bowel sounds, Soft, No tenderness Extremities: No edema Medications Current Medications Medications Dose Ordered Sig/Trina Route Start Time Stop Time Status Last Admin Dose Admin Diagnostic Test (Pha) 1 strip ACHS 03/27/25 07:00 03/28/25 17:24 1 STRIP Insulin Human Regular ACHS SC 03/27/25 07:00 03/28/25 17:25 4 UNITS Dextrose 50 ml UD PRN IV 03/26/25 22:30 Pantoprazole Sodium 40 mg DAILY IV 03/27/25 10:00 03/28/25 10:01 40 MG Diagnostic Test (Pha) 1 strip ACHS 03/27/25 07:00 03/28/25 17:24 1 STRIP Insulin Human Regular ACHS SC 03/27/25 07:00 UNV Dextrose 50 ml UD PRN IV 03/26/25 23:00 Insulin Glargine 15 units QAM SC 03/27/25 07:00 03/28/25 06:50 15 UNITS Aspirin 81 mg DAILY PO 03/27/25 10:00 03/28/25 10:03 81 MG Atorvastatin Calcium 80 mg HS PO 03/27/25 22:00 03/27/25 22:13 80 MG Amlodipine Besylate 10 mg DAILY PO 03/28/25 10:00 03/28/25 10:02 10 MG Clopidogrel Bisulfate 75 mg DAILY PO 03/28/25 10:00 03/28/25 10:02 75 MG Laboratory Results Laboratory Tests 03/27/25 05:05 03/28/25 06:54 Chemistry Test 03/28/25 06:54 Calcium Level 9.7 mg/dL (8.7-10.4) HgA1c, TSH Test 03/28/25 06:54 Hemoglobin A1c 8.0 % A1C (<5.7) H Urinalysis Test 03/27/25 09:00 Urine Color Light-yellow (Yellow) Urine Clarity Clear (Clear) Urine pH 5.5 (5.0-9.0) Urine Specific [place] 1.014 (1.001-1.035) Urine Protein Negative (Negative) Urine Ketones Negative (Negative) Urine Blood Negative /uL (Negative) Urine Nitrite Negative (Negative) Urine Bilirubin Negative (Negative) Urine Urobilinogen Normal mg/dL (Negative) Urine Leukocyte Esterase Negative /uL (Negative) Urine RBC None seen /hpf (0 - 3) Urine Microscopic WBC < 1 /HPF (0-3) Urine Squamous Epithelial Cells Few /hpf (<5) Urine Bacteria None seen /hpf (None Seen) Urine Creatinine 43.19 mg/dL (30.0-125.0) Urine Protein/Creatinine Ratio 0.30 Urine Sodium 149 mmol/L (40-220) Urine Glucose 4+ mg/dL (Normal) H Urine Total Protein 12.8 mg/dL (1-14) Assessment/Plan Assessment/Plan Hypotension due to dehydration and acute kidney injury due to vasomotor nephropathy Acute kidney injury due to vasomotor nephropathy Possible underlying CKD Uncontrolled type 2 diabetes History of hypertension History of CAD with PTCA x3 2-1/2 years ago taking aspirin and Plavix History of CVA with left-sided residual weakness 6 months ago Carotid stenosis with right carotid stent done also 6 months ago Anemia most likely of chronic disease Generalized weakness Plan Hypertension: Amlodipine was started Continue aspirin and Plavix Lipitor Lantus 20 units daily Nephrology consult Monitor the kidney function Echocardiogram pending Full code Physical therapy evaluation Advance directives discussed for 20 minute 03/28/25: Continue IV fluids PT eval Monitor kidney function Plan discussed with: Patient My Orders Orders - CIARRA FRAGOSO MD Procedure Category Date Status Time Pt Request For Service PT 03/28/25 Logged 12:24 Date of Service: March 28, 2025 Billing Provider: CIARRA FRAGOSO MD Common Visit Codes: [id number] INP/OBS CARE(HIGH) CIARRA FRAGOSO MD March 28, 2025 19:37
--- NOTE | 2025-03-28 22:01 | DVHSR ---
APPROVED REPORT EXAM: Two-dimensional and M-mode echocardiogram with Doppler and color Doppler. Blood Pressure: 115/61 mmHg INDICATION CAD RISK FACTORS Height: 5'5", Weight: 159 DIMENSIONS LVDd4.9 (3.8-5.7cm)LA (2D)4.4 (1.9-4.0cm)Aortic Root3.5 (2.0-3.7cm) LVDs2.9 (2.5-4.0cm)LA (MM) (1.9-4.0cm)Aortic Cusp Exc1.9 (1.5-2.0cm) EF (%) 73.0 (55-70%)Rt. Atrium (1.9-4.0cm)Asc. Aorta3.5 cm IVSd1.2 (0.7-1.1cm)RV (D) (1.8-2.4cm) PWd1.3 (0.7-1.1cm) Mitral Valve MitralMitral Stenosis E wave0.38m/sMV Mean GR.mmHg A wave0.61m/sMV Peak GR.mmHg E/A ratio0.62D MVAcm2 DECEL [id number] 1/2 Timems Aortic Valve Aortic ValveAortic Stenosis V10.58m/Conrad Mean GR.2mmHg V20.88m/Conrad Peak GR.3mmHg LVOT Diameter2.8 (1.8-2.4cm)Doppler AVA4.06cm2 Pulmonic Valve V20.68m/s Other Information Quality : Technically LimitedRhythm : Technically limited study due to body habitus. Conclusion Technically good study. Sinus rhythm. Concentric LVH. Left atrial enlargement. Aortic root enlargement with dilation of the sinuses of Va lsalva. Valves appear to be structurally normal. EF of 60% with normal RV function. Dopplers unremarkable. No pericardial effusion masses or vegetations.
[2025-03-29] VITALS (7 sets, daily range): BP systolic 98–138; BP diastolic 43–75; PULSE 65–81; RESP 16–18; TEMP 97.6–98.4; O2SAT 98–100
[2025-03-29 06:49] LABS: Sodium 140 mmol/L (136-145)
[2025-03-29 06:50] LABS: Anion Gap 8 (5-15); Carbon Dioxide 21 mmol/L (20-31)
[2025-03-29 06:51] LABS: Calcium 9.2 mg/dL (8.7-10.4)
[2025-03-29 06:56] LABS: BUN/Creatinine Ratio 17.9 (10.0-20.0); Blood Urea Nitrogen 22 mg/dL (9-23)
[2025-03-29 07:06] LABS: Chloride 111 mmol/L (98-107); Glucose 141 mg/dL (74-106)
--- NOTE | 2025-03-29 13:17 | DVHPN2 ---
Progress Note Date Seen: March 29, 2025 Medical Necessity Reason Pt with a Central, PICC or Fol: No Subjective Patient reports: No new complaints Review of Systems: Deferred Objective vital signs Vital Sign Date Time Temp Pulse Resp B/P (MAP) Pulse Ox O2 Delivery O2 Flow Rate FiO2 03/29/25 10:06 138/75 03/29/25 09:00 98.4 78 16 98 98.4 03/29/25 08:00 Room Air* 0 21 Total Intake and Output 03/28/25 03/28/25 03/29/25 15:00 23:00 07:00 Intake Total 800 ml 500 ml Output Total 550 ml Balance 250 ml 500 ml medications Current Medications Medications Dose Ordered Sig/Trina Route Start Time Stop Time Status Last Admin Dose Admin Diagnostic Test (Pha) 1 strip ACHS 03/27/25 07:00 03/29/25 11:30 1 STRIP Insulin Human Regular ACHS SC 03/27/25 07:00 03/29/25 12:47 2 UNITS Dextrose 50 ml UD PRN IV 03/26/25 22:30 Pantoprazole Sodium 40 mg DAILY IV 03/27/25 10:00 03/29/25 10:05 40 MG Diagnostic Test (Pha) 1 strip ACHS 03/27/25 07:00 03/29/25 11:30 1 STRIP Insulin Human Regular ACHS SC 03/27/25 07:00 UNV Dextrose 50 ml UD PRN IV 03/26/25 23:00 Insulin Glargine 15 units QAM SC 03/27/25 07:00 03/29/25 06:43 15 UNITS Aspirin 81 mg DAILY PO 03/27/25 10:00 03/29/25 10:06 81 MG Atorvastatin Calcium 80 mg HS PO 03/27/25 22:00 03/28/25 21:45 80 MG Amlodipine Besylate 10 mg DAILY PO 03/28/25 10:00 03/29/25 10:06 10 MG Clopidogrel Bisulfate 75 mg DAILY PO 03/28/25 10:00 03/29/25 10:06 75 MG laboratory and microbiology Laboratory Tests 03/29/25 05:28 03/27/25 05:05 Test 03/29/25 05:28 Range/Units Serum Glucose 141 H 74-106 mg/dL Problem List/Assessment/Plan Problem List/Assessment/Plan Acute kidney injury likely hemodynamic mediated etiology in the setting of hypotension Hypotension, likely orthostatic hypotension Type 2 diabetes mellitus-A1c 8 Anemia likely normocytic Rash, bilateral ankles, pruritic ? 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
--- NOTE | 2025-03-29 15:18 | DVHDS2 ---
Discharge Summary Date of Admission March 26, 2025 at 22:16 Date of Discharge: March 29, 2025 Labs/Diagnostic Data: Laboratory Results Test 03/29/25 12:18 03/29/25 05:28 03/28/25 06:54 03/27/25 09:00 POC Glucose 151 mg/dl (70-106) Sodium Level 140 mmol/L (136-145) Potassium Level 4.0 mmol/L (3.5-5.1) Chloride Level 111 mmol/L (98-107) Carbon Dioxide Level 21 mmol/L (20-31) Anion Gap 8 (5-15) Blood Urea Nitrogen 22 mg/dL (9-23) Creatinine 1.23 mg/dL (0.700-1.30) Glomerular Filtration Rate Calc 65 mL/min (>90) BUN/Creatinine Ratio 17.9 (10.0-20.0) Serum Glucose 141 mg/dL (74-106) Calcium Level 9.2 mg/dL (8.7-10.4) Hemoglobin A1c 8.0 % A1C (<5.7) Iron Level 57 ug/dL (65-175) Total Iron Binding Capacity 266 ug/dL (250-425) Percent Iron Saturation 21.4 % (20-55) Ferritin 227.2 ng/mL (22-322) Urine Color Light-yellow (Yellow) Urine Clarity Clear (Clear) Urine pH 5.5 (5.0-9.0) Urine Specific [place] 1.014 (1.001-1.035) Urine Protein Negative (Negative) Urine Ketones Negative (Negative) Urine Blood Negative /uL (Negative) Urine Nitrite Negative (Negative) Urine Bilirubin Negative (Negative) Urine Urobilinogen Normal mg/dL (Negative) Urine Leukocyte Esterase Negative /uL (Negative) Urine RBC None seen /hpf (0 - 3) Urine Microscopic WBC < 1 /HPF (0-3) Urine Squamous Epithelial Cells Few /hpf (<5) Urine Bacteria None seen /hpf (None Seen) Urine Creatinine 43.19 mg/dL (30.0-125.0) Urine Protein/Creatinine Ratio 0.30 Urine Sodium 149 mmol/L (40-220) Urine Glucose 4+ mg/dL (Normal) Urine Total Protein 12.8 mg/dL (1-14) Test 03/27/25 05:05 03/26/25 23:08 5/14/25 15:42 White Blood Count 5.0 10^3/uL (4.4-10.8) Red Blood Count 3.03 10^6/uL (4.5-5.90) Hemoglobin 9.8 g/dL (13.5-17.5) Hematocrit 29.7 % (41.0-53.0) Mean Corpuscular Volume 98.1 fL (80.0-100.0) Mean Corpuscular Hemoglobin 32.3 pg (28.0-32.0) Mean Corpuscular Hemoglobin Concent 33.0 g/dL (32.0-36.0) Red Cell Distribution Width 14.1 % (11.8-14.3) Platelet Count 268 10^3/uL (140-450) Mean Platelet Volume 7.2 fL (6.9-10.8) Neutrophils (%) (Auto) 45.0 % (37.0-80.0) Lymphocytes (%) (Auto) 39.0 % (10.0-50.0) Monocytes (%) (Auto) 10.9 % (0.0-12.0) Eosinophils (%) (Auto) 3.7 % (0.0-7.0) Basophils (%) (Auto) 1.4 % (0.0-2.0) Neutrophils # (Auto) 2.2 10 ^3/uL (1.6-8.6) Lymphocytes # (Auto) 1.9 10 ^3/uL (0.4-5.4) Monocytes # (Auto) 0.5 10 ^3/uL (0-1.3) Eosinophils # (Auto) 0.2 10 ^3/uL (0-0.8) Basophils # (Auto) 0.1 10 ^3/uL (0-0.2) Nucleated Red Blood Cells 0.0 % Phosphorus Level 4.1 mg/dL (2.4-5.1) Magnesium Level 2.3 mg/dL (1.6-2.6) Total Bilirubin 0.7 mg/dL (0.2-1.0) Aspartate Amino Transferase (AST) 33 U/L (13-40) Alanine Aminotransferase (ALT) 54 U/L (7-40) Alkaline Phosphatase 135 U/L (46-116) Total Protein 6.7 g/dL (5.7-8.2) Albumin 4.0 g/dL (3.2-4.8) Triglycerides Level 84 mg/dL (< 150) Cholesterol Level 102 mg/dL (< 200) LDL Cholesterol 50 mg/dL (< 100) HDL Cholesterol 34 mg/dL (40-59) Vitamin D 25-Hydroxy 35.1 ng/mL (30.0-100) Hepatitis B Surface Antigen Negative (Negative) Hepatitis B Surface Antibody Negative (Negative) Hepatitis C Antibody Negative (Negative) HIV (1&2) Antibody Negative (Negative) Reticulocyte Count (auto) 1.24 % (0.5-1.5) Vitamin B12 Level 1045 pg/mL (211-911) Folic Acid 10.89 ng/mL (>5.38) Thyroid Stimulating Hormone (TSH) 2.96 uIU/mL (0.55-4.78) Parathyroid Hormone (Intact) 89.8 pg/mL (18.4-80.1) Troponin I High Sensitivity 7 ng/L (</=54) Other Laboratory Tests 03/29/25 05:28 03/27/25 05:05 Brief Hx & Hospital Course: Final diagnoses: Hypotension due to dehydration and acute kidney injury due to vasomotor nephropathy Acute kidney injury due to vasomotor nephropathy Possible underlying CKD Uncontrolled type 2 diabetes History of hypertension History of CAD with PTCA x3 2-1/2 years ago taking aspirin and Plavix History of CVA with left-sided residual weakness 6 months ago Carotid stenosis with right carotid stent done also 6 months ago Anemia most likely of chronic disease Generalized weakness 64-year-old male with a history of type 2 diabetes insulin-dependent, coronary artery disease status post stents 2-1/2 years ago, hypertension, CVA with left hemiparesis 6 months ago, carotid stenosis with right carotid stent done also 6 months ago came with a chief complaint of low blood pressure and weakness apparently he was at his primary care doctor's office yesterday and his blood pressure was low and he felt weak and therefore he was sent here for admission and his blood pressure was running at about 120/66, he was found to have elevated creatinine at 2.0, he was given IV fluids overnight creatinine is down to 1.7 is blood pressure is better and he is feeling better He was given IV fluids here for 2 days, he improved He is not symptomatic anymore No lightheadedness Vital signs are stable Blood pressure is better today He was seen by Nephrology His kidney function has mostly recovered now his creatinine is 1.2 Stable for discharge Follow up with his primary care physician and taker off braker machine as an outpatient as scheduled Resume home medications Condition at Discharge: Stable Final Diagnosis/Problems List Hypotension due to dehydration and acute kidney injury due to vasomotor nephropathy Acute kidney injury due to vasomotor nephropathy Possible underlying CKD Uncontrolled type 2 diabetes History of hypertension History of CAD with PTCA x3 2-1/2 years ago taking aspirin and Plavix History of CVA with left-sided residual weakness 6 months ago Carotid stenosis with right carotid stent done also 6 months ago Anemia most likely of chronic disease Generalized weakness Discharge Disposition: Home SNF Discharge Will this Physician continue t: No Discharge Instruct/Medications Diet: Consistent carbohydrate, Cardiac 2g Na,low cholest, Renal Activity: No Restrictions, As Tolerated Follow Up/Referral: PCP as soon as possible [employer] as scheduled Medications: Same home medications Discharge Statement: "Patient was advised to return to the ER or call 911 if any headaches, dizziness, shortness of breath, chest pain, abdominal pain, bleeding, fevers, or worsening of medical condition. Patient was counseled about treatment plan, medications, possible side effects, patientverbalized understanding. All questions were answered to the best of my ability. This discharge took greater then 30 minutes in planning, reviewing documentation, counseling the patient, and discussing with other team members." ASSESSMENT ASSESSMENT Assessment Hypotension due to dehydration and acute kidney injury due to vasomotor nephropathy Acute kidney injury due to vasomotor nephropathy Possible underlying CKD Uncontrolled type 2 diabetes History of hypertension History of CAD with PTCA x3 2-1/2 years ago taking aspirin and Plavix History of CVA with left-sided residual weakness 6 months ago Carotid stenosis with right carotid stent done also 6 months ago Anemia most likely of chronic disease Generalized weakness Date of Service: March 29, 2025 Billing Provider: CIARRA FRAGOSO MD Common Visit Codes: 13755-QOZ/OBS DISCH DAY >30min CIARRA FRAGOSO MD March 29, 2025 15:18
== END 2025-03-29 17:45 | disposition home or self-care (01) | DRG 640 ==
LOC: EDBD 14:57 → ER 15:08 → OVERFLOW 22:16 → TELE-WESTW 03-27 16:15
PROVIDERS: ADMIT Internal Medicine Geriatric Medicine; ATTEND Internal Medicine Geriatric Medicine
DX: E86.0 Dehydration (principal); N17.0 Acute kidney failure with tubular necrosis; I69.354 Hemiplegia and hemiparesis following cerebral infarction affecting left non-dominant side; I95.9 Hypotension, unspecified; D63.1 Anemia in chronic kidney disease; N18.9 Chronic kidney disease, unspecified; L29.89 Other pruritus; I25.10 Atherosclerotic heart disease of native coronary artery without angina pectoris; R79.89 Other specified abnormal findings of blood chemistry; E11.65 Type 2 diabetes mellitus with hyperglycemia; I12.9 Hypertensive chronic kidney disease with stage 1 through stage 4 chronic kidney disease, or unspecified chronic kidney disease; E11.22 Type 2 diabetes mellitus with diabetic chronic kidney disease; Z83.3 Family history of diabetes mellitus; Z90.49 Acquired absence of other specified parts of digestive tract; Z79.82 Long term (current) use of aspirin; Z79.4 Long term (current) use of insulin; Z95.5 Presence of coronary angioplasty implant and graft; Z83.49 Family history of other endocrine, nutritional and metabolic diseases
CPT/HCPCS: 36415; 70450; 71045; 76775; 80048; 80053; 80061; 81001; 82306; 82570; 82607; 82728; 82746; 82962; 83036; 83540; 83550; 83735; 83970; 84100; 84156; 84300; 84443; 84484; 85025; 85045; 86703; 86706; 86803; 87340; 93306; 93886; 96361; 96372; 96374; 97163; G0378; J1815; J2470